=== PATIENT | female | born 1995 | race African-American/Black ===

== ENCOUNTER 2017-01-02 13:44 | Emergency (ER) | payer MEDICAID, OTHER ==
[~2017-01-02 13:44] MED LIST: MACR100C PO; PRENCAP10 PO
[2017-01-02 13:45] VITALS: BP 158/71; PULSE 62; RESP 20; TEMP 99; O2SAT 98
--- NOTE | 2017-01-02 14:07 | PD ---
Physical Exam Time Seen by Provider: 14:05 Narrative 21 y/o female with brown/pink vaginal discharge for one week. Vital signs reviewed. Seen at triage desk. Awaiting bed placement. Data Data Last Documented VS Vital Signs Date Time Temp Pulse Resp B/P Pulse Ox O2 Delivery O2 Flow Rate FiO2 01/02/17 13:45 99.0 62 20 158/71 98 Room Air MDM Medical Record Reviewed: Yes Supervised Visit with MECCA: Ronaldo Walls Jan 02, 2017 14:07
== END 2017-01-02 15:33 | disposition left against medical advice (07) ==
LOC: NED 13:44
DX: N89.8 Other specified noninflammatory disorders of vagina (principal)
CPT/HCPCS: 99281

== ENCOUNTER 2017-01-22 08:09 | Emergency (ER) | payer SELFPAY ==
[~2017-01-22] VITALS: Ht 160 cm; Wt 75.0 kg
[2017-01-22 08:10] VITALS: BP 136/66; PULSE 89; RESP 18; TEMP 98.7; O2SAT 100
[2017-01-22] MEDS ORDERED: SODIUM CHLOR 0.9% 1000 ML INJ 1,000 ML IV SCH (08:39)
[2017-01-22] MEDS ORDERED: ACETAMINOPHEN 325 MG TAB PO ONE (08:45)
[2017-01-22] MEDS ORDERED: SODIUM CHLORIDE 0.9% FLUSH 10 ML FLUSH IV FLUSH PRN (08:45)
--- NOTE | 2017-01-22 08:47 | PD ---
HPI Chief Complaint: Medical Clearance Time Seen by Provider: 08:27 Travel History International Travel<30 days: No Contact w/Intl Traveler<30days: No Traveled to known affect area: No History of Present Illness HPI 21-year-old female arrives with various complaints including blurred vision, headache, abdominal pain, back pain, loss of appetite and intermittent fevers for one month. Due to her very symptoms she skipped work and came to the ER for evaluation. She reports last menstruation was 2 months prior. She took a home test which was negative. Onset of symptoms have been gradual however intermittent otherwise. Severity moderate. No abnormal/idiosyncratic food or drink. No known sick contacts. No similar prior episode. PFSH Past Medical History Asthma: Yes Developmental Delay: No Diminished Hearing: No Immunizations Current: Yes ?: Unknown LMP: NOVEMBER 23, 2016 : 3 Para: 2 Miscarriage: 0 : 0 Social History Alcohol Use: No Tobacco Use: No Substance Use: No Allergies-Medications (Allergen,Severity, Reaction): Coded Allergies: No Known Allergies (Verified , 01/22/17) Reported Meds & Prescriptions Reported Meds & Active Scripts Active No Active Prescriptions or Reported Medications Review of Systems Except as stated in HPI: all other systems reviewed are Neg Physical Exam Narrative GENERAL: 21-year-old female well-nourished well-developed no acute distress speaking full sentences SKIN: Warm and dry. HEAD: Atraumatic. Normocephalic. EYES: Pupils equal and round. No scleral icterus. No injection or drainage. ENT: No nasal bleeding or discharge. Mucous membranes pink and moist. NECK: Trachea midline. No JVD. CARDIOVASCULAR: Regular rate and rhythm. RESPIRATORY: No accessory muscle use. Clear to auscultation. Breath sounds equal bilaterally. GASTROINTESTINAL: Abdomen soft, non-tender, nondistended. Hepatic and splenic margins not palpable. MUSCULOSKELETAL: Extremities without clubbing, cyanosis, or edema. No obvious deformities. NEUROLOGICAL: Awake and alert. No obvious cranial nerve deficits. Motor grossly within normal limits. Five out of 5 muscle strength in the arms and legs. Normal speech. PSYCHIATRIC: Appropriate mood and affect; insight and judgment normal. Data Data Last Documented VS Vital Signs Date Time Temp Pulse Resp B/P Pulse Ox O2 Delivery O2 Flow Rate FiO2 01/22/17 10:00 76 18 124/69 100 Room Air 01/22/17 08:10 98.7 Vital signs reviewed Orders Basic Metabolic Panel (Bmp) (01/22/17 08:39) Complete Blood Count With Diff (01/22/17 08:39) Urinalysis - C+S If Indicated (01/22/17 08:39) Iv Access Insert/Monitor (01/22/17 08:39) Ecg Monitoring (01/22/17 08:39) Oximetry (01/22/17 08:39) Sodium Chlor 0.9% 1000 Ml Inj (Ns 1000 M (01/22/17 08:39) Sodium Chloride 0.9% Flush (Ns Flush) (01/22/17 08:45) Ed Urine Pregnancytest Poc (01/22/17 08:39) Acetaminophen (Tylenol) (01/22/17 08:45) Labs Laboratory Tests Test 01/22/17 08:50 White Blood Count 10.8 TH/MM3 Red Blood Count 5.38 MIL/MM3 Hemoglobin 13.0 GM/DL Hematocrit 38.9 % Mean Corpuscular Volume 72.4 FL Mean Corpuscular Hemoglobin 24.2 PG Mean Corpuscular Hemoglobin 33.4 % Concent Red Cell Distribution Width 15.2 % Platelet Count 320 TH/MM3 Mean Platelet Volume 8.2 FL Neutrophils (%) (Auto) 59.1 % Lymphocytes (%) (Auto) 31.0 % Monocytes (%) (Auto) 7.5 % Eosinophils (%) (Auto) 1.6 % Basophils (%) (Auto) 0.8 % Neutrophils # (Auto) 6.4 TH/MM3 Lymphocytes # (Auto) 3.3 TH/MM3 Monocytes # (Auto) 0.8 TH/MM3 Eosinophils # (Auto) 0.2 TH/MM3 Basophils # (Auto) 0.1 TH/MM3 CBC Comment DIFF FINAL Differential Comment Urine Color YELLOW Urine Turbidity CLEAR Urine pH 6.5 Urine Specific [place] 1.027 Urine Protein TRACE mg/dL Urine Glucose (UA) NEG mg/dL Urine Ketones NEG mg/dL Urine Occult Blood NEG Urine Nitrite NEG Urine Bilirubin NEG Urine Urobilinogen LESS THAN 2.0 MG/DL Urine Leukocyte Esterase NEG Urine RBC 1 /hpf Urine WBC 2 /hpf Urine Squamous Epithelial 1 /hpf Cells Urine Mucus FEW /lpf Microscopic Urinalysis Comment CULT NOT INDICATED Sodium Level 138 MEQ/L Potassium Level 4.1 MEQ/L Chloride Level 107 MEQ/L Carbon Dioxide Level 27.0 MEQ/L Anion Gap 4 MEQ/L Blood Urea Nitrogen 13 MG/DL Creatinine 0.83 MG/DL Estimat Glomerular Filtration 103 ML/MIN Rate Random Glucose 96 MG/DL Calcium Level 8.6 MG/DL [facility] Medical Decision Making Medical Screen Exam Complete: Yes Emergency Medical Condition: Yes Medical Record Reviewed: Yes Differential Diagnosis UTI, anemia, electrolyte imbalance, nonspecific viral syndrome, intrauterine , rheumatologic disease Narrative Course CBC & BMP Diagram 01/22/17 08:50 Urinalysis shows no UTI POC is negative The patient is resting comfortably and feels better, is alert and in no distress. The patients results and examination findings were discussed. The repeat examination is unremarkable and benign. The history, exam, diagnostic testing, and current condition do not suggest any significant pathology to warrant further testing, continued ED treatment, admission, or surgical evaluation at this point. The vital signs have been stable. The patient does not have uncontrollable pain, intractable vomiting, or other significant symptoms. The patient's condition is stable and appropriate for discharge. The patient will pursue further outpatient evaluation with a primary care physician or other designated or consulting physician as indicated in the discharge instructions. The patient expressed understanding and was agreeable with this plan. Diagnosis Primary Impression: Headache Qualified Code: R51 - Nonintractable headache, unspecified chronicity pattern , unspecified headache type Additional Impressions: Blurred vision Intermittent fever Pain Referrals: [facility] 2 days Additional Instructions: Please be sure to follow up with your primary care provider. Please take the day off and drink plenty of fluids. Med/Other Pt SpecificInfo: No Change to Meds Scripts No Active Prescriptions or Reported Meds Disposition: 01 DISCHARGE HOME Condition: Stable Joseph Wilson MD Jan 22, 2017 08:47 Joseph Wilson MD Jan 22, 2017 08:47
[2017-01-22 09:00] VITALS: O2SAT 100
[2017-01-22 09:01] VITALS: BP 119/84; PULSE 77; RESP 15; O2SAT 100
[2017-01-22 09:21] LABS: AUTOMATED NEUTROPHIL # 6.4 TH/MM3 (1.8-7.7); BASOPHIL # 0.1 TH/MM3 (0-0.2); BASOPHIL % 0.8 % (0.0-2.0); EOSINOPHIL # 0.2 TH/MM3 (0-0.4); EOSINOPHIL % 1.6 % (0.0-4.0); HEMATOCRIT 38.9 % (35.0-46.0); HEMO FLAGS DIFF FINAL; LYMPHOCYTE # 3.3 TH/MM3 (1.0-4.8); MEAN CELL VOLUME 72.4 FL (80.0-100.0); MEAN CORPUSCULAR HEMOGLOBIN 24.2 PG (27.0-34.0); MEAN CORPUSCULAR HGB CONC 33.4 % (32.0-36.0); MONO % 7.5 % (0.0-8.0); NEUT % 59.1 % (16.0-70.0); PLATELET COUNT 320 TH/MM3 (150-450); RED BLOOD COUNT 5.38 MIL/MM3 (4.00-5.30); RED CELL DISTRIBUTION WIDTH 15.2 % (11.6-17.2); WHITE BLOOD COUNT 10.8 TH/MM3 (4.0-11.0)
[2017-01-22 09:24] LABS: BLOOD, URINE NEG (NEG); COMMENT (UR) CULT NOT INDICATED; CULTURE IF INDICATED CULT NOT INDICATED; GLUCOSE,URINE NEG (NEG); KETONE, URINE NEG (NEG); MUCUS URINE FEW /lpf (OCC); NITRITE,URINE NEG (NEG); PH, URINE 6.5 (5.0-8.5); SQUAMOUS EPITHELIAL CELL URINE 1 /hpf (0-5); URINE COLOR YELLOW (YELLW/STRAW)
[2017-01-22 09:38] LABS: POTASSIUM 4.1 MEQ/L (3.5-5.1)
[2017-01-22 10:00] VITALS: BP 124/69; PULSE 76; RESP 18; O2SAT 100
== END 2017-01-22 11:11 | disposition home or self-care (01) ==
LOC: NEPC 08:09
DX: R51 Headache (principal); H53.8 Other visual disturbances; R50.9 Fever, unspecified
CPT/HCPCS: 80048; 81001; 84703; 85025; 96360; 99284; J7030

== ENCOUNTER 2017-04-29 14:30 | Emergency (ER) | payer SELFPAY ==
[2017-04-29 14:33] VITALS: BP 146/74; PULSE 122; RESP 20; TEMP 103; O2SAT 99
[2017-04-29 16:16] LABS: AUTOMATED NEUTROPHIL # 13.4 TH/MM3 (1.8-7.7); BASOPHIL # 0.1 TH/MM3 (0-0.2); BASOPHIL % 0.5 % (0.0-2.0); EOSINOPHIL % 0.2 % (0.0-4.0); HEMATOCRIT 38.9 % (35.0-46.0); HEMO FLAGS DIFF FINAL; LYMPH % 11.6 % (9.0-44.0); MEAN CELL VOLUME 72.1 FL (80.0-100.0); MEAN CORPUSCULAR HEMOGLOBIN 24.1 PG (27.0-34.0); MEAN CORPUSCULAR HGB CONC 33.4 % (32.0-36.0); MONO % 9.8 % (0.0-8.0); NEUT % 77.9 % (16.0-70.0); PLATELET COUNT 330 TH/MM3 (150-450); RED BLOOD COUNT 5.39 MIL/MM3 (4.00-5.30); RED CELL DISTRIBUTION WIDTH 15.7 % (11.6-17.2); WHITE BLOOD COUNT 17.1 TH/MM3 (4.0-11.0)
[2017-04-29 16:27] LABS: BICARBONATE 23.1 MEQ/L (21.0-32.0)
[2017-04-29] MEDS ORDERED: SODIUM CHLOR 0.9% 1000 ML INJ 1,000 ML IV ONE (16:45)
[2017-04-29] MEDS ORDERED: ACETAMINOPHEN 325 MG TAB PO ONE (16:45)
[2017-04-29] MEDS ORDERED: KETOROLAC TROMETHAMINE 30 MG/ML (IVP) VIAL IV PUSH ONE (16:45)
--- NOTE | 2017-04-29 16:51 | PD ---
HPI Chief Complaint: Cold / Flu Symptoms Time Seen by Provider: 16:25 Travel History International Travel<30 days: No Contact w/Intl Traveler<30days: No Traveled to known affect area: No History of Present Illness HPI The patient is a 21-year-old female who presents to the emergency department for sore throat and fever. The patient states she had a sore throat 3 weeks ago, it lasted for approximately 2 weeks with some cervical lymphadenopathy and diffuse body aches. Her symptoms resolved for one week and then returned one week ago. She complains of a sore throat, anterior neck swelling, and diffuse body aches. She now notes nausea, vomiting, and diarrhea that started earlier today. She denies any dysuria. She does have a fever as high as 104 in the emergency department with some chills and sweats. The patient denies any history of mononucleosis or leukemia. Symptoms are moderate , there are no current alleviating or exacerbating factors. The patient is currently on control, denies . PFSH Past Medical History Asthma: Yes Developmental Delay: No Diminished Hearing: No Immunizations Current: Yes ?: Not : 3 Para: 3 Miscarriage: 0 : 0 Social History Alcohol Use: Yes (OCCASSIONAL) Tobacco Use: Yes Substance Use: No Allergies-Medications (Allergen,Severity, Reaction): Coded Allergies: No Known Allergies (Verified Adverse Reaction, Unknown, 04/29/17) Reported Meds & Prescriptions Reported Meds & Active Scripts Active Amoxicillin 500 Mg Tab 500 Mg PO TID Prednisone 20 Mg Tab 20 Mg PO BID Review of Systems Except as stated in HPI: all other systems reviewed are Neg General / Constitutional: Positive: Fever, Chills HENT: Positive: Headaches, Sore Throat, Neck Pain (anterior neck pain and swelling), No: Congestion Cardiovascular: No: Chest Pain or Discomfort Respiratory: No: Shortness of Breath Gastrointestinal: Positive: Nausea, Vomiting, Diarrhea, No: Abdominal Pain Musculoskeletal: Positive: Myalgias Skin: No Rash Physical Exam Narrative GENERAL: Awake, alert, pleasant 21-year-old female who appears her stated age and is in no acute respiratory distress. SKIN: Focused skin assessment warm/dry. HEAD: Atraumatic. Normocephalic. EYES: Pupils equal and round. No scleral icterus. No injection or drainage. ENT: Oropharynx reveals an erythematous oropharynx without any visible exudate. NECK: Trachea midline. No JVD. Anterior cervical lymphadenopathy bilaterally which is tender. CARDIOVASCULAR: Regular, tachycardic with a heart rate of 115. RESPIRATORY: No accessory muscle use. Clear to auscultation. Breath sounds equal bilaterally. GASTROINTESTINAL: Abdomen soft, non-tender, nondistended. No rebound tenderness , guarding, or rigidity. MUSCULOSKELETAL: No obvious deformities. No clubbing. No cyanosis. No edema. NEUROLOGICAL: Awake and alert. No obvious cranial nerve deficits. Motor grossly within normal limits. Normal speech. PSYCHIATRIC: Appropriate mood and affect; insight and judgment normal. Data Data Last Documented VS Vital Signs Date Time Temp Pulse Resp B/P (MAP) Pulse Ox O2 Delivery O2 Flow Rate FiO2 04/29/17 20:33 04/29/17 20:25 99 18 100 Room Air 04/29/17 17:00 100.4 Orders Orders Urinalysis - C+S If Indicated (04/29/17 14:53) Ed Urine Pregnancytest Poc (04/29/17 14:53) Influenzae A/B Antigen (04/29/17 14:53) Group A Rapid Strep Screen (04/29/17 14:53) Complete Blood Count With Diff (04/29/17 14:53) Basic Metabolic Panel (Bmp) (04/29/17 14:53) Strep Culture (Group A) (04/29/17 15:19) Monoscreen (04/29/17 16:37) Ketorolac Inj (Toradol Inj) (04/29/17 16:45) Acetaminophen (Tylenol) (04/29/17 16:45) Sodium Chlor 0.9% 1000 Ml Inj (Ns 1000 M (04/29/17 16:45) Ondansetron Inj (Zofran Inj) (04/29/17 17:00) Dexamethasone Inj (Decadron Inj) (04/29/17 17:15) Ct Soft Tiss Neck W Iv Cont (04/29/17 17:03) Iohexol 350 Inj (Omnipaque 350 Inj) (04/29/17 18:44) Ed Discharge Order (04/29/17 20:22) Labs Laboratory Tests Test 04/29/17 15:19 04/29/17 16:10 04/29/17 16:45 White Blood Count 17.1 TH/MM3 Red Blood Count 5.39 MIL/MM3 Hemoglobin 13.0 GM/DL Hematocrit 38.9 % Mean Corpuscular Volume 72.1 FL Mean Corpuscular Hemoglobin 24.1 PG Mean Corpuscular Hemoglobin Concent 33.4 % Red Cell Distribution Width 15.7 % Platelet Count 330 TH/MM3 Mean Platelet Volume 8.7 FL Neutrophils (%) (Auto) 77.9 % Lymphocytes (%) (Auto) 11.6 % Monocytes (%) (Auto) 9.8 % Eosinophils (%) (Auto) 0.2 % Basophils (%) (Auto) 0.5 % Neutrophils # (Auto) 13.4 TH/MM3 Lymphocytes # (Auto) 2.0 TH/MM3 Monocytes # (Auto) 1.7 TH/MM3 Eosinophils # (Auto) 0.0 TH/MM3 Basophils # (Auto) 0.1 TH/MM3 CBC Comment DIFF FINAL Differential Comment Blood Urea Nitrogen 7 MG/DL Creatinine 0.88 MG/DL Random Glucose 99 MG/DL Calcium Level 8.7 MG/DL Sodium Level 136 MEQ/L Potassium Level 4.0 MEQ/L Chloride Level 107 MEQ/L Carbon Dioxide Level 23.1 MEQ/L Anion Gap 6 MEQ/L Estimat Glomerular Filtration Rate 96 ML/MIN Urine Color YELLOW Urine Turbidity HAZY Urine pH 7.0 Urine Specific [place] 1.018 Urine Protein TRACE mg/dL Urine Glucose (UA) NEG mg/dL Urine Ketones NEG mg/dL Urine Occult Blood NEG Urine Nitrite NEG Urine Bilirubin NEG Urine Urobilinogen 2.0 MG/DL Urine Leukocyte Esterase NEG Urine RBC 1 /hpf Urine WBC 3 /hpf Urine Squamous Epithelial Cells 10 /hpf Microscopic Urinalysis Comment CULT NOT INDICATED Monoscreen NEG MDM Medical Decision Making Medical Screen Exam Complete: Yes Emergency Medical Condition: Yes Medical Record Reviewed: Yes Interpretation(s) Laboratory Tests Test 04/29/17 15:19 White Blood Count 17.1 TH/MM3 Red Blood Count 5.39 MIL/MM3 Hemoglobin 13.0 GM/DL Hematocrit 38.9 % Mean Corpuscular Volume 72.1 FL Mean Corpuscular Hemoglobin 24.1 PG Mean Corpuscular Hemoglobin Concent 33.4 % Red Cell Distribution Width 15.7 % Platelet Count 330 TH/MM3 Mean Platelet Volume 8.7 FL Neutrophils (%) (Auto) 77.9 % Lymphocytes (%) (Auto) 11.6 % Monocytes (%) (Auto) 9.8 % Eosinophils (%) (Auto) 0.2 % Basophils (%) (Auto) 0.5 % Neutrophils # (Auto) 13.4 TH/MM3 Lymphocytes # (Auto) 2.0 TH/MM3 Monocytes # (Auto) 1.7 TH/MM3 Eosinophils # (Auto) 0.0 TH/MM3 Basophils # (Auto) 0.1 TH/MM3 CBC Comment DIFF FINAL Differential Comment Blood Urea Nitrogen 7 MG/DL Creatinine 0.88 MG/DL Random Glucose 99 MG/DL Calcium Level 8.7 MG/DL Sodium Level 136 MEQ/L Potassium Level 4.0 MEQ/L Chloride Level 107 MEQ/L Carbon Dioxide Level 23.1 MEQ/L Anion Gap 6 MEQ/L Estimat Glomerular Filtration Rate 96 ML/MIN Differential Diagnosis Differential diagnosis includes mononucleosis, strep pharyngitis, URI, viral syndrome, influenza, fever of unknown origin. Narrative Course IV was established, labs are drawn and sent, and the patient was placed on cardiac telemetry monitoring and continuous pulse oximetry monitoring. Strep screen was sent to lab. Mononucleosis screen was sent to lab. Influenza screen was negative. The patient was administered Toradol, Tylenol, Zofran, and IV fluids. White count was elevated at 17.1, BMP was unremarkable. The patient was signed out to the oncoming physician at 5 PM with laboratory evaluation of mononucleosis screen pending. Diagnosis Primary Impression: Pharyngitis Qualified Codes: J02.9 - Acute pharyngitis, unspecified Additional Impression: Febrile illness Scripts Amoxicillin (Amoxicillin) 500 Mg Tab 500 MG PO TID for Infection, #30 TAB 0 Refills Prov: Phan Paulson MD 04/29/17 Prednisone (Prednisone) 20 Mg Tab 20 MG PO BID, #10 TAB 0 Refills Prov: Phan Paulson MD 04/29/17 Condition: Stable Gagandeep Dinh MD Apr 29, 2017 16:51
[2017-04-29 17:00] VITALS: BP 134/82; PULSE 109; RESP 20; TEMP 100.4; O2SAT 98
[2017-04-29] MEDS ORDERED: ONDANSETRON HCL 4 MG/2 ML VIAL IV PUSH ONE (17:00)
[2017-04-29] MEDS ORDERED: DEXAMETHASONE SOD PHOS 4 MG/ML VIAL IV PUSH ONE (17:15)
[2017-04-29 17:29] LABS: BLOOD, URINE NEG (NEG); COMMENT (UR) CULT NOT INDICATED; CULTURE IF INDICATED CULT NOT INDICATED; GLUCOSE,URINE NEG (NEG); KETONE, URINE NEG (NEG); NITRITE,URINE NEG (NEG); SQUAMOUS EPITHELIAL CELL URINE 10 /hpf (0-5); URINE COLOR YELLOW (YELLW/STRAW)
[2017-04-29] MEDS ORDERED: IOHEXOL 350 MG/ML 10 ML VIAL (for RAD DIAG) IVCONTRAST ONE (18:44)
--- NOTE | 2017-04-29 20:12 | RADRPT ---
EXAM DATE/TIME: 04/29/2017 18:38 [place] COMPARISON: No previous studies available for comparison. INDICATIONS : Sore throat x1 week. IV CONTRAST: 61 cc Omnipaque 350 (iohexol) IV RADIATION DOSE: 17.34 CTDIvol (mGy) MEDICAL HISTORY : None SURGICAL HISTORY : None. ENCOUNTER: Initial ACUITY: 1 week PAIN SCALE: 6/10 LOCATION: Bilateral neck TECHNIQUE: Volumetric scanning of the neck was performed. Using automated exposure control and adjustment of th e mA and/or kV according to patient size, radiation dose was kept as low as reasonably achievable to obtain optimal diagnostic quality images. DICOM format image data is available electronically for r eview and comparison. FINDINGS: NASOPHARYNX: There is increased soft tissue density at the nasopharynx likely from enlarged adenoids. OROPHARYNX: The tonsils appear prominent. No focal fluid collection is seen. The hypopharynx is normal. LARYNX: The supraglottic, glottic, and infraglottic structures are intact. PARAPHARYNGEAL: There are prominent lymph nodes in the parapharyngeal spaces. SALIVARY GLANDS: The parotid and submandibular glands are intact. LYMPH NODES: There are enlarged lymph nodes in the parapharyngeal and posterior triangle regions bilaterally THYROID: The thyroid appears prominent without focal masses. BONES: Unremarkable. OTHER: There is near total opacification of the left sphenoid sinus. There is mild peripheral mucosal diseas e of the maxillary sinuses bilaterally. CONCLUSION: 1. Suspected enlarged adenoids and tonsils. There is also prominent lymph nodes throughout the neck. No abscess is seen. 2. Left sphenoid and bilateral maxillary sinus disease. Willi Mensah MD on April 29, 2017 at 20:06 Board Certified Radiologist. This report was verified electronically.
--- NOTE | 2017-04-29 20:16 | PD ---
Physical Exam Narrative Patient was seen by ED physician and signed out to me. Data Data Last Documented VS Vital Signs Date Time Temp Pulse Resp B/P (MAP) Pulse Ox O2 Delivery O2 Flow Rate FiO2 04/29/17 17:59 18 04/29/17 17:00 100.4 109 134/82 (99) 98 Room Air Orders Orders Urinalysis - C+S If Indicated (04/29/17 14:53) Ed Urine Pregnancytest Poc (04/29/17 14:53) Influenzae A/B Antigen (04/29/17 14:53) Group A Rapid Strep Screen (04/29/17 14:53) Complete Blood Count With Diff (04/29/17 14:53) Basic Metabolic Panel (Bmp) (04/29/17 14:53) Strep Culture (Group A) (04/29/17 15:19) Monoscreen (04/29/17 16:37) Ketorolac Inj (Toradol Inj) (04/29/17 16:45) Acetaminophen (Tylenol) (04/29/17 16:45) Sodium Chlor 0.9% 1000 Ml Inj (Ns 1000 M (04/29/17 16:45) Ondansetron Inj (Zofran Inj) (04/29/17 17:00) Dexamethasone Inj (Decadron Inj) (04/29/17 17:15) Ct Soft Tiss Neck W Iv Cont (04/29/17 17:03) Iohexol 350 Inj (Omnipaque 350 Inj) (04/29/17 18:44) Ed Discharge Order (04/29/17 20:22) Labs Laboratory Tests Test 04/29/17 15:19 04/29/17 16:10 04/29/17 16:45 White Blood Count 17.1 TH/MM3 Red Blood Count 5.39 MIL/MM3 Hemoglobin 13.0 GM/DL Hematocrit 38.9 % Mean Corpuscular Volume 72.1 FL Mean Corpuscular Hemoglobin 24.1 PG Mean Corpuscular Hemoglobin Concent 33.4 % Red Cell Distribution Width 15.7 % Platelet Count 330 TH/MM3 Mean Platelet Volume 8.7 FL Neutrophils (%) (Auto) 77.9 % Lymphocytes (%) (Auto) 11.6 % Monocytes (%) (Auto) 9.8 % Eosinophils (%) (Auto) 0.2 % Basophils (%) (Auto) 0.5 % Neutrophils # (Auto) 13.4 TH/MM3 Lymphocytes # (Auto) 2.0 TH/MM3 Monocytes # (Auto) 1.7 TH/MM3 Eosinophils # (Auto) 0.0 TH/MM3 Basophils # (Auto) 0.1 TH/MM3 CBC Comment DIFF FINAL Differential Comment Blood Urea Nitrogen 7 MG/DL Creatinine 0.88 MG/DL Random Glucose 99 MG/DL Calcium Level 8.7 MG/DL Sodium Level 136 MEQ/L Potassium Level 4.0 MEQ/L Chloride Level 107 MEQ/L Carbon Dioxide Level 23.1 MEQ/L Anion Gap 6 MEQ/L Estimat Glomerular Filtration Rate 96 ML/MIN Urine Color YELLOW Urine Turbidity HAZY Urine pH 7.0 Urine Specific [place] 1.018 Urine Protein TRACE mg/dL Urine Glucose (UA) NEG mg/dL Urine Ketones NEG mg/dL Urine Occult Blood NEG Urine Nitrite NEG Urine Bilirubin NEG Urine Urobilinogen 2.0 MG/DL Urine Leukocyte Esterase NEG Urine RBC 1 /hpf Urine WBC 3 /hpf Urine Squamous Epithelial Cells 10 /hpf Microscopic Urinalysis Comment CULT NOT INDICATED Monoscreen NEG MDM Supervised Visit with MECCA: Yes Interpretation(s) [address] scan soft tissue neck shows enlarged adenoids and tonsils. No abscess. Left sphenoid bilateral maxillary sinus disease. Diagnosis Primary Impression: Pharyngitis Qualified Codes: J02.9 - Acute pharyngitis, unspecified Additional Impressions: Febrile illness Sinusitis Qualified Codes: J01.00 - Acute maxillary sinusitis, unspecified Patient Instructions: General Instructions Additional Instruction: Patient requesting free medication at [facility]. Prescription for Amoxicillin and prednisone given. Tylenol ibuprofen for pain. Follow-up with personal physician. Return if worse. Med/Other Pt SpecificInfo: Prescription(s) given Scripts Amoxicillin (Amoxicillin) 500 Mg Tab 500 MG PO TID for Infection, #30 TAB 0 Refills Prov: Phan Paulson MD 04/29/17 Prednisone (Prednisone) 20 Mg Tab 20 MG PO BID, #10 TAB 0 Refills Prov: Phan Paulson MD 04/29/17 Disposition: 01 DISCHARGE HOME Condition: Stable Phan Paulson MD Apr 29, 2017 20:16
[2017-04-29 20:25] VITALS: BP 129/78; PULSE 99; RESP 18; O2SAT 100
[2017-04-29] MEDS ORDERED: PRED20 PO (20:28)
[2017-04-29] MEDS ORDERED: AMOX500T PO (20:28)
== END 2017-04-29 20:34 | disposition home or self-care (01) ==
LOC: NEPD 14:30
DX: J02.9 Acute pharyngitis, unspecified (principal); R50.9 Fever, unspecified; J32.3 Chronic sphenoidal sinusitis; J32.0 Chronic maxillary sinusitis; J35.3 Hypertrophy of tonsils with hypertrophy of adenoids; R11.2 Nausea with vomiting, unspecified; R19.7 Diarrhea, unspecified; J45.909 Unspecified asthma, uncomplicated; Z72.0 Tobacco use
CPT/HCPCS: 70491; 80048; 81001; 84703; 85025; 86308; 87081; 87804; 87880; 96361; 96374; 96375; 99285; J1100; J1885; J2405; J7030; Q9967

== ENCOUNTER 2017-11-17 00:33 | Emergency (ER) | payer OTHER ==
[~2017-11-17] VITALS: Ht 160 cm; Wt 81.5 kg
[~2017-11-17 00:33] MED LIST changes: +AMOX500T PO; -MACR100C PO; +PRED20 PO; -PRENCAP10 PO
[2017-11-17 00:36] VITALS: BP 132/58; PULSE 91; RESP 14; TEMP 97.1; O2SAT 100
[2017-11-17] MEDS ORDERED: SODIUM CHLOR 0.9% 1000 ML INJ 1,000 ML IV ONE (01:00)
[2017-11-17] MEDS ORDERED: ONDANSETRON ODT 4 MG TAB PO ONE (01:00)
[2017-11-17 01:11] VITALS: O2SAT 100
[2017-11-17 01:28] LABS: AUTOMATED NEUTROPHIL # 9.6 TH/MM3 (1.8-7.7); BASOPHIL # 0.1 TH/MM3 (0-0.2); BASOPHIL % 0.4 % (0.0-2.0); EOSINOPHIL # 0.1 TH/MM3 (0-0.4); EOSINOPHIL % 0.5 % (0.0-4.0); HEMATOCRIT 36.5 % (35.0-46.0); HEMOGLOBIN 12.1 GM/DL (11.6-15.3); LYMPH % 24.8 % (9.0-44.0); LYMPHOCYTE # 3.7 TH/MM3 (1.0-4.8); MEAN CELL VOLUME 69.8 FL (80.0-100.0); MEAN CORPUSCULAR HEMOGLOBIN 23.1 PG (27.0-34.0); MEAN CORPUSCULAR HGB CONC 33.1 % (32.0-36.0); MEAN PLATELET VOLUME 8.5 FL (7.0-11.0); MONO % 9.6 % (0.0-8.0); MONOCYTE # 1.4 TH/MM3 (0-0.9); NEUT % 64.7 % (16.0-70.0); PLATELET COUNT 298 TH/MM3 (150-450); RED BLOOD COUNT 5.23 MIL/MM3 (4.00-5.30); RED CELL DISTRIBUTION WIDTH 17.2 % (11.6-17.2); WHITE BLOOD COUNT 14.9 TH/MM3 (4.0-11.0)
--- NOTE | 2017-11-17 01:29 | PD ---
HPI Chief Complaint: Cold / Flu Symptoms Time Seen by Provider: 00:59 Travel History International Travel<30 days: No Contact w/Intl Traveler<30days: No Traveled to known affect area: No History of Present Illness HPI The patient is a 23 year old female who presents to the [facility] emergency department with a history of congestion, cough, rhinorrhea, sore throat that began in the last 24 hours. The patient reports that in the afternoon she began to have generalized body aches. She reports that she did take Tylenol. She last took Tylenol at 7:30 PM. She reports that she recently found out that she is . She is a . She reports that her cough has not been productive. She reports that her nasal discharge is clear in color. The patient reports having a subjective fever earlier today. Patient reports having nausea vomiting earlier today. She denies having any abdominal pain, vaginal discharge, or vaginal bleeding. On review of systems otherwise, she denies having any neck pain, chest pain, shortness of breath,urinary symptoms, or neurologic symptoms. Last menstrual cycle: October 03, 2017 [facility] Past Medical History Narrative Medical The patient's past medical history is reportedly none. The patient's past OB history is significant for being a with 3 prior vaginal deliveries, last delivery complicated by preeclampsia. Asthma: Yes Developmental Delay: No Diminished Hearing: No Immunizations Current: Yes Tetanus Vaccination: < 5 Years Influenza Vaccination: No ?: LMP: 5 weeks : 4 Para: 3 Miscarriage: 0 : 0 Past Surgical History Surgical History: No Previous Surgery Social History Alcohol Use: Yes (OCCASSIONAL) Tobacco Use: No Substance Use: No Allergies-Medications (Allergen,Severity, Reaction): Coded Allergies: No Known Allergies (Verified Adverse Reaction, Unknown, 04/29/17) Reported Meds & Prescriptions Reported Meds & Active Scripts Active Amoxicillin 500 Mg Tab 500 Mg PO TID Prednisone 20 Mg Tab 20 Mg PO BID Review of Systems Except as stated in HPI: all other systems reviewed are Neg General / Constitutional: Positive: Fever Eyes: No: Visual changes HENT: Positive: Sore Throat, Rhinorrhea, Congestion, No: Headaches Cardiovascular: No: Chest Pain or Discomfort Respiratory: Positive: Cough, No: Shortness of Breath Gastrointestinal: Positive: Nausea, Vomiting, No: Abdominal Pain Genitourinary: No: Dysuria Musculoskeletal: Positive: Myalgias, No: Pain Skin: No Rash Neurologic: No: Weakness, Focal Abnormalities, Change in Mentation, Slurred Speech, Sensory Disturbance Psychiatric: No: Depression Endocrine: No: Polydipsia Hematologic/Lymphatic: No: Easy Bruising Physical Exam Narrative General: The patient is a well-developed well-nourished female in no acute distress. Head and Neck exam: Head is normocephalic atraumatic. Eyes: EOMI, pupils are equal round and reactive to light. Nose: Midline septum with midline septum, erythematous edematous nasal mucosa with a clear nasal discharge Mouth: Dentition unremarkable. Moist mucus membranes. Posterior oropharynx is mildly erythematous. No tonsillar hypertrophy. Uvula midline. Airway patent. Neck: No palpable lymphadenopathy. No nuchal rigidity. No thyromegaly. Cardiovascular: Regular rate and rhythm without murmurs, gallops, or rubs. No pulse deficit to the extremities on simultaneous auscultation and palpation of her radial artery. Lungs: Clear to auscultation bilaterally. No wheezes, rhonchi, or rales. Abdomen: Soft, without tenderness to palpation in all 4 quadrants of the abdomen. No guarding, rebound, or rigidity. Normal bowel sounds are audible. No tenderness on palpation of McBurney's point. Negative Anaya sign. Extremities: No clubbing, cyanosis, or edema. 2+ pulses in all 4 extremities. No calf tenderness on palpation peer Back: No spinous process tenderness to palpation. No costovertebral angle tenderness to palpation. Neurologic Exam: Grossly nonfocal. Skin Exam: No rash noted. Intact skin that is warm and dry. Data Data Last Documented VS Vital Signs Date Time Temp Pulse Resp B/P (MAP) Pulse Ox O2 Delivery O2 Flow Rate FiO2 11/17/17 01:11 100 Room Air 11/17/17 00:36 97.1 91 14 132/58 (82) Orders Orders Complete Blood Count With Diff (11/17/17:00) Basic Metabolic Panel (Bmp) (11/17/17:00) Urinalysis - C+S If Indicated (11/17/17:00) Group A Rapid Strep Screen (11/17/17:00) Iv Access Insert/Monitor (11/17/17:00) Ecg Monitoring (6/4/18 01:00) Oximetry (11/17/17 01:00) Ed Urine Pregnancytest Poc (11/17/17 01:00) Sodium Chlor 0.9% 1000 Ml Inj (Ns 1000 M (11/17/17 01:00) Ondansetron Odt (Zofran Odt) (11/17/17 01:00) Beta Hcg (Quant/Titer) (11/17/17 01:11) Strep Culture (Group A) (11/17/17 01:11) Labs Laboratory Tests Test 11/17/17 01:11 11/17/17 01:12 White Blood Count 14.9 TH/MM3 Red Blood Count 5.23 MIL/MM3 Hemoglobin 12.1 GM/DL Hematocrit 36.5 % Mean Corpuscular Volume 69.8 FL Mean Corpuscular Hemoglobin 23.1 PG Mean Corpuscular Hemoglobin Concent 33.1 % Red Cell Distribution Width 17.2 % Platelet Count 298 TH/MM3 Mean Platelet Volume 8.5 FL Neutrophils (%) (Auto) 64.7 % Lymphocytes (%) (Auto) 24.8 % Monocytes (%) (Auto) 9.6 % Eosinophils (%) (Auto) 0.5 % Basophils (%) (Auto) 0.4 % Neutrophils # (Auto) 9.6 TH/MM3 Lymphocytes # (Auto) 3.7 TH/MM3 Monocytes # (Auto) 1.4 TH/MM3 Eosinophils # (Auto) 0.1 TH/MM3 Basophils # (Auto) 0.1 TH/MM3 CBC Comment DIFF FINAL Differential Comment Blood Urea Nitrogen 6 MG/DL Creatinine 0.73 MG/DL Random Glucose 108 MG/DL Calcium Level 8.6 MG/DL Sodium Level 138 MEQ/L Potassium Level 3.7 MEQ/L Chloride Level 104 MEQ/L Carbon Dioxide Level 24.6 MEQ/L Anion Gap 9 MEQ/L Estimat Glomerular Filtration Rate 119 ML/MIN Human Chorionic Gonadotropin, Quant 59312 MIU/ML Urine Color YELLOW Urine Turbidity HAZY Urine pH 7.0 Urine Specific [place] 1.012 Urine Protein NEG mg/dL Urine Glucose (UA) NEG mg/dL Urine Ketones NEG mg/dL Urine Occult Blood NEG Urine Nitrite NEG Urine Bilirubin NEG Urine Urobilinogen LESS THAN 2.0 MG/DL Urine Leukocyte Esterase SMALL Urine RBC LESS THAN 1 /hpf Urine WBC 4 /hpf Urine Squamous Epithelial Cells 6 /hpf Urine Bacteria RARE /hpf Urine Mucus FEW /lpf Microscopic Urinalysis Comment CULT NOT INDICATED MDM Medical Decision Making Medical Screen Exam Complete: Yes Emergency Medical Condition: Yes Medical Record Reviewed: Yes Differential Diagnosis Viral upper respiratory infection, versus bacterial sinus infection, versus strep pharyngitis Narrative Course During the course of the patient's emergency department visit, the patient's history, examination, and differential diagnosis were reviewed with the patient. The patient was placed on a color television console monitor with oximetry and frequent blood pressure monitoring. The patient had IV access obtained and blood work sent for analysis. The patient was initially provided normal saline 1 L IV fluid bolus, Zofran 4 mg ODT. The patient was also provided Gatorade for p.o. hydration. The patient's laboratory studies were reviewed and remarkable for a white count of 14.9, hemoglobin 12.1, platelets 298 with 9.6 monocytes, basic metabolic profile is remarkable for glucose of 108, BUN 6, beta-hCG is 30,280, urinalysis shows small leukocyte esterase rare bacteria, culture not indicated, however given her bacteriuria in the patient will be treated with Macrobid, rapid strep test is negative. The patient will be discharged home with a prescription for Macrobid and Zofran oral dissolving tablet for nausea and . The patient is instructed to continue to push fluids and get plenty of rest. The patient is instructed to take Tylenol as written on the package as needed for discomfort or fever. The patient is instructed to follow-up with the registered health nurse as soon as possible regarding her . The patient is resting comfortably and feels better, is alert and in no distress. The patient's results and examination findings were discussed with the patient. The repeat examination is unremarkable and benign. The history, exam, diagnostic testing, and current condition do not suggest any significant pathology to warrant further testing, continued ED treatment, admission, or surgical evaluation at this point. The vital signs have been stable. The patient does not have uncontrollable pain, intractable vomiting, or other significant symptoms. The patient's condition is stable and appropriate for discharge. The patient will pursue further outpatient evaluation with a primary care physician or other designated or consulting physician as indicated in the discharge instructions. The patient is instructed to report back to the emergency department immediately for reexamination in the mean time if he/ she develops any new or worsening signs or symptoms. The patient expressed understanding and was agreeable with this plan. Diagnosis Primary Impression: Upper respiratory infection Qualified Codes: J06.9 - Acute upper respiratory infection, unspecified Additional Impression: Bacteriuria during Referrals: [employer] 1 week Primary Care Physician 3 days Patient Instructions: General Instructions, Upper Respiratory Infection in Children (ED), Urinary Tract Infection in (ED) Med/Other Pt SpecificInfo: Prescription(s) given (macrobid) Scripts Ondansetron Odt (Zofran Odt) 4 Mg Tab 4 MG SL Q6HR Y for Nausea/Vomiting, #12 TAB 0 Refills Prov: Melvina Rubin MD 11/17/17 Nitrofurantoin Monohydrate Macrocrystals (Macrobid) 100 Mg Cap 100 MG PO BID for Infection for 7 Days, #14 CAP 0 Refills Prov: Melvina Rubin MD 11/17/17 Disposition: 01 DISCHARGE HOME Condition: Stable Melvina Rubin MD Nov 17, 2017 01:29
[2017-11-17 01:32] LABS: BACTERIA, URINE RARE /hpf; BILIRUBIN, URINE NEG (NEG); BLOOD, URINE NEG (NEG); GLUCOSE,URINE NEG (NEG); KETONE, URINE NEG (NEG); MUCUS URINE FEW /lpf (OCC); NITRITE,URINE NEG (NEG); SQUAMOUS EPITHELIAL CELL URINE 6 /hpf (0-5); URINE COLOR YELLOW (YELLW/STRAW); URINE LEUKOCYTE ESTERASE SMALL (NEG)
[2017-11-17 01:40] LABS: BICARBONATE 24.6 MEQ/L (21.0-32.0); CALCIUM 8.6 MG/DL (8.5-10.1); CREATININE 0.73 MG/DL (0.50-1.00)
[2017-11-17] MEDS ORDERED: ZOFR4TAB3 SL (03:35)
[2017-11-17] MEDS ORDERED: MACR100C2 PO (03:35)
== END 2017-11-17 03:51 | disposition home or self-care (01) ==
LOC: NEPC 00:33
DX: O99.511 Diseases of the respiratory system complicating pregnancy, first trimester (principal); J06.9 Acute upper respiratory infection, unspecified; R82.71 Bacteriuria; Z3A.01 Less than 8 weeks gestation of pregnancy
CPT/HCPCS: 80048; 81001; 84702; 84703; 85025; 87081; 87880; 99283; J7030

== ENCOUNTER 2017-12-03 13:40 | Emergency (ER) | payer OTHER ==
[~2017-12-03] VITALS: Ht 160 cm; Wt 85.0 kg
[~2017-12-03 13:40] MED LIST changes: +MACR100C2 PO; +ZOFR4TAB3 SL
[2017-12-03 13:44] VITALS: BP 139/62; PULSE 84; RESP 16; TEMP 97.5; O2SAT 100
[2017-12-03 14:10] LABS: AUTOMATED NEUTROPHIL # 8.7 TH/MM3 (1.8-7.7); BASOPHIL # 0.1 TH/MM3 (0-0.2); BASOPHIL % 0.5 % (0.0-2.0); EOSINOPHIL # 0.1 TH/MM3 (0-0.4); EOSINOPHIL % 0.8 % (0.0-4.0); HEMATOCRIT 36.2 % (35.0-46.0); LYMPH % 26.7 % (9.0-44.0); LYMPHOCYTE # 3.6 TH/MM3 (1.0-4.8); MEAN CELL VOLUME 71.7 FL (80.0-100.0); MEAN CORPUSCULAR HEMOGLOBIN 23.9 PG (27.0-34.0); MEAN CORPUSCULAR HGB CONC 33.3 % (32.0-36.0); MONO % 7.4 % (0.0-8.0); NEUT % 64.6 % (16.0-70.0); PLATELET COUNT 349 TH/MM3 (150-450); RED BLOOD COUNT 5.05 MIL/MM3 (4.00-5.30); RED CELL DISTRIBUTION WIDTH 18.3 % (11.6-17.2); WHITE BLOOD COUNT 13.5 TH/MM3 (4.0-11.0)
[2017-12-03 14:27] LABS: ALBUMIN 3.5 GM/DL (3.4-5.0); AST (GOT) 11 U/L (15-37); BICARBONATE 25.6 MEQ/L (21.0-32.0); BLOOD UREA NITROGEN 5 MG/DL (7-18); CALCIUM 8.8 MG/DL (8.5-10.1); CHLORIDE 105 MEQ/L (98-107); CREATININE 0.71 MG/DL (0.50-1.00); GLOMERULAR FILTRATION RATE 122 ML/MIN (>89); GLUCOSE,RANDOM 112 MG/DL (74-106); SODIUM (NA) 140 MEQ/L (136-145)
[2017-12-03 14:31] LABS: ALKALINE PHOSPHATASE 80 U/L (45-117); ALT (GPT) 17 U/L (10-53); TOTAL BILIRUBIN ADULT 0.3 MG/DL (0.2-1.0); TROPONIN I LESS THAN 0.02 NG/ML (0.02-0.05)
[2017-12-03] MEDS ORDERED: SODIUM CHLOR 0.9% 1000 ML INJ 1,000 ML IV ONE ×2 (14:45)
[2017-12-03] MEDS ORDERED: ACETAMINOPHEN 325 MG TAB PO ONE (14:45)
[2017-12-03 15:02] VITALS: BP 131/76; PULSE 89; RESP 17; O2SAT 99
--- NOTE | 2017-12-03 15:06 | PD ---
HPI Chief Complaint: Chest Pain Time Seen by Provider: 14:26 Travel History International Travel<30 days: No Contact w/Intl Traveler<30days: No Traveled to known affect area: No History of Present Illness HPI Patient is a 22-year-old female who is 9 weeks , presents to the emergency room with complaints of chest pain. Patient reports that she woke up this morning with sharp and stabbing pain to her left chest, patient reports that pain is worse with taking a deep breath, nothing makes symptoms better. Reports that pain is nonradiating in nature, denies any diaphoresis with her symptoms. Patient denies history of ACS, coronary artery disease, PE or DVT. Patient denies any recent travels or trips, no family history of any early coronary artery disease. Patient is a non-smoker, denies any abdominal pain, denies any nausea vomiting, denies any vaginal discharge or bleeding PFSH Past Medical History Asthma: Yes (childhood) Developmental Delay: No Diminished Hearing: No Immunizations Current: Yes ?: LMP: 8 weeks : 4 Para: 3 Miscarriage: 0 : 0 Past Surgical History Surgical History: No Previous Surgery Social History Alcohol Use: Yes (OCCASSIONAL) Tobacco Use: No Substance Use: No Allergies-Medications (Allergen,Severity, Reaction): Coded Allergies: No Known Allergies (Verified Adverse Reaction, Unknown, 04/29/17) Reported Meds & Prescriptions Reported Meds & Active Scripts Active Zofran Odt (Ondansetron Odt) 4 Mg Tab 4 Mg SL Q6HR PRN Macrobid (Nitrofurantoin Monoh/Nitrofur Macro) 100 Mg Cap 100 Mg PO BID 7 Days Amoxicillin 500 Mg Tab 500 Mg PO TID Prednisone 20 Mg Tab 20 Mg PO BID Review of Systems General / Constitutional: No: Fever Eyes: No: Visual changes HENT: No: Headaches Cardiovascular: Positive: Chest Pain or Discomfort, Palpitations, Irregular Rhythm Respiratory: Positive: Shortness of Breath Gastrointestinal: No: Abdominal Pain Genitourinary: No: Dysuria, Discharge, Vaginal Bleeding Musculoskeletal: No: Pain Skin: No Rash Neurologic: No: Weakness Psychiatric: No: Depression Endocrine: No: Polydipsia Hematologic/Lymphatic: No: Easy Bruising Physical Exam Narrative GENERAL: Mild distress SKIN: Focused skin assessment warm/dry. HEAD: Atraumatic. Normocephalic. EYES: Pupils equal and round. No scleral icterus. No injection or drainage. ENT: No nasal bleeding or discharge. Mucous membranes pink and moist. NECK: Trachea midline. No JVD. CARDIOVASCULAR: Regular rate and rhythm. No murmur appreciated. RESPIRATORY: No accessory muscle use. Clear to auscultation. Breath sounds equal bilaterally. GASTROINTESTINAL: Abdomen soft, non-tender, nondistended. Hepatic and splenic margins not palpable. MUSCULOSKELETAL: No obvious deformities. No clubbing. No cyanosis. No edema. NEUROLOGICAL: Awake and alert. No obvious cranial nerve deficits. Motor grossly within normal limits. Normal speech. PSYCHIATRIC: Appropriate mood and affect; insight and judgment normal. Data Data Last Documented VS Vital Signs Date Time Temp Pulse Resp B/P (MAP) Pulse Ox O2 Delivery O2 Flow Rate FiO2 12/03/17 16:00 75 18 123/63 (83) 100 Room Air 12/03/17 13:44 97.5 Orders Orders Electrocardiogram (12/03/17 ) Complete Blood Count With Diff (12/03/17 13:47) Comprehensive Metabolic Panel (12/03/17 13:47) Troponin I (12/03/17 13:47) Electrocardiogram (12/03/17 ) D-Dimer (12/03/17 14:44) Chest, Single Ap (12/03/17 14:44) Ecg Monitoring (12/03/17 14:44) Iv Access Insert/Monitor (12/03/17 14:44) Oximetry (12/03/17 14:44) Sodium Chlor 0.9% 1000 Ml Inj (Ns 1000 M (12/03/17 14:45) Sodium Chlor 0.9% 1000 Ml Inj (Ns 1000 M (12/03/17 14:45) Acetaminophen (Tylenol) (12/03/17 14:45) Potassium Chloride (Kcl) (12/03/17 16:30) Ct Pulmonary Angiogram (12/03/17 16:37) Labs Laboratory Tests Test 12/03/17 13:50 12/03/17 15:00 White Blood Count 13.5 TH/MM3 Red Blood Count 5.05 MIL/MM3 Hemoglobin 12.0 GM/DL Hematocrit 36.2 % Mean Corpuscular Volume 71.7 FL Mean Corpuscular Hemoglobin 23.9 PG Mean Corpuscular Hemoglobin Concent 33.3 % Red Cell Distribution Width 18.3 % Platelet Count 349 TH/MM3 Mean Platelet Volume 8.0 FL Neutrophils (%) (Auto) 64.6 % Lymphocytes (%) (Auto) 26.7 % Monocytes (%) (Auto) 7.4 % Eosinophils (%) (Auto) 0.8 % Basophils (%) (Auto) 0.5 % Neutrophils # (Auto) 8.7 TH/MM3 Lymphocytes # (Auto) 3.6 TH/MM3 Monocytes # (Auto) 1.0 TH/MM3 Eosinophils # (Auto) 0.1 TH/MM3 Basophils # (Auto) 0.1 TH/MM3 CBC Comment DIFF FINAL Differential Comment Blood Urea Nitrogen 5 MG/DL Creatinine 0.71 MG/DL Random Glucose 112 MG/DL Total Protein 8.0 GM/DL Albumin 3.5 GM/DL Calcium Level 8.8 MG/DL Alkaline Phosphatase 80 U/L Aspartate Amino Transf (AST/SGOT) 11 U/L Alanine Aminotransferase (ALT/SGPT) 17 U/L Total Bilirubin 0.3 MG/DL Sodium Level 140 MEQ/L Potassium Level 3.3 MEQ/L Chloride Level 105 MEQ/L Carbon Dioxide Level 25.6 MEQ/L Anion Gap 9 MEQ/L Estimat Glomerular Filtration Rate 122 ML/MIN Troponin I LESS THAN 0.02 NG/ML D-Dimer Quantitative (PE/DVT) 0.57 MG/L FEU [facility] Medical Decision Making Medical Screen Exam Complete: Yes Emergency Medical Condition: Yes Medical Record Reviewed: Yes Interpretation(s) EKG at 1355: NSR at 81bpm, qt/qtc: 382/420, no acute st changes Vital Signs Date Time Temp Pulse Resp B/P (MAP) Pulse Ox O2 Delivery O2 Flow Rate FiO2 12/03/17 15:02 89 17 131/76 (94) 99 Room Air 12/03/17 13:44 97.5 84 16 139/62 (87) 100 Differential Diagnosis ACS, arrhythmia, PE, pneumothorax, electrolyte abnormality Narrative Course During the course of the patients emergency department visit, the patients history, examination, and differential diagnosis were reviewed with the patient. The patient was placed on a equipment monitor phototypesetting with oximetry and frequent blood pressure monitoring. The patient had an IV access obtained and blood work sent for analysis. The patient was initially provided IVF The patients laboratory studies were reviewed and remarkable for Laboratory Tests Test 12/03/17 13:50 12/03/17 15:00 White Blood Count 13.5 TH/MM3 (4.0-11.0) Red Blood Count 5.05 MIL/MM3 (4.00-5.30) Hemoglobin 12.0 GM/DL (11.6-15.3) Hematocrit 36.2 % (35.0-46.0) Mean Corpuscular Volume 71.7 FL (80.0-100.0) Mean Corpuscular Hemoglobin 23.9 PG (27.0-34.0) Mean Corpuscular Hemoglobin Concent 33.3 % (32.0-36.0) Red Cell Distribution Width 18.3 % (11.6-17.2) Platelet Count 349 TH/MM3 (150-450) Mean Platelet Volume 8.0 FL (7.0-11.0) Neutrophils (%) (Auto) 64.6 % (16.0-70.0) Lymphocytes (%) (Auto) 26.7 % (9.0-44.0) Monocytes (%) (Auto) 7.4 % (0.0-8.0) Eosinophils (%) (Auto) 0.8 % (0.0-4.0) Basophils (%) (Auto) 0.5 % (0.0-2.0) Neutrophils # (Auto) 8.7 TH/MM3 (1.8-7.7) Lymphocytes # (Auto) 3.6 TH/MM3 (1.0-4.8) Monocytes # (Auto) 1.0 TH/MM3 (0-0.9) Eosinophils # (Auto) 0.1 TH/MM3 (0-0.4) Basophils # (Auto) 0.1 TH/MM3 (0-0.2) CBC Comment DIFF FINAL Differential Comment Blood Urea Nitrogen 5 MG/DL (7-18) Creatinine 0.71 MG/DL (0.50-1.00) Random Glucose 112 MG/DL (74-106) Total Protein 8.0 GM/DL (6.4-8.2) Albumin 3.5 GM/DL (3.4-5.0) Calcium Level 8.8 MG/DL (8.5-10.1) Alkaline Phosphatase 80 U/L (45-117) Aspartate Amino Transf (AST/SGOT) 11 U/L (15-37) Alanine Aminotransferase (ALT/SGPT) 17 U/L (10-53) Total Bilirubin 0.3 MG/DL (0.2-1.0) Sodium Level 140 MEQ/L (136-145) Potassium Level 3.3 MEQ/L (3.5-5.1) Chloride Level 105 MEQ/L (98-107) Carbon Dioxide Level 25.6 MEQ/L (21.0-32.0) Anion Gap 9 MEQ/L (5-15) Estimat Glomerular Filtration Rate 122 ML/MIN (>89) Troponin I LESS THAN 0.02 NG/ML D-Dimer Quantitative (PE/DVT) 0.57 MG/L FEU (0.00-0.50) Radiology studies were reviewed and remarkable for Last Impressions Chest X-Ray 12/03/17 1444 Signed Impressions: CONCLUSION: Negative for acute process Patient reevaluated, patient with a positive d-dimer, discussed with patient need for CTA to rule out PE. She is 9 weeks , risks and benefits reviewed patient in detail, patient consents to obtaining this test as she is concerned about her pleuritic chest pain Patient refusing CT at this time, patient requesting leave AMA. AMA: The risks of leaving against medical advice without further evaluation treatment were discussed with the patient. These risks include cardiac dysfunction, cardiac dysrhythmia, possible heart attack, possible stroke or . The patient indicated understanding of these risks and appeared to have the capacity to make this decision. Patient will return to ER if she has return of symptoms Diagnosis Primary Impression: Left against medical advice Additional Impression: Chest pain Patient Instructions: General Instructions Additional Instructions: you may return to the emergency room at any time for reevaluation of your symptoms please follow up with your primary care doctor as soon as possible Disposition: 07 AGAINST MEDICAL ADVICE Condition: Serious Vicky Ahn DO Dec 03, 2017 15:06
--- NOTE | 2017-12-03 15:09 | RADRPT ---
EXAM DATE: 12/03/2017 3:06 PM EDT AGE/SEX: 22 years / Female INDICATIONS: Chest pain. CLINICAL DATA: This is the patient's initial encounter. Patient reports that signs and symptoms have been present for 1 day and indicates a pain score of 7/10. MEDICAL/SURGICAL HISTORY: . 8 1/2 weeks None. COMPARISON: No prior exams available for comparison. FINDINGS: A single AP view of the chest demonstrates the lungs to be symmetrically aerated without evidence of mass, infiltrate or effusion. The cardiomediastinal contours are unremarkable. Osseous structures a re intact. CONCLUSION: Negative for acute process Electronically signed by: Arthur Valadez MD 12/03/2017 3:08 PM EDT
[2017-12-03 16:00] VITALS: BP 123/63; PULSE 75; RESP 18; O2SAT 100
[2017-12-03] MEDS ORDERED: POTASSIUM CHLORIDE 10 MEQ CONTROLLED RELEASE TAB PO ONE (16:30)
--- NOTE | 2017-12-03 17:07 | PD ---
Data Data Last Documented VS Vital Signs Date Time Temp Pulse Resp B/P (MAP) Pulse Ox O2 Delivery O2 Flow Rate FiO2 12/03/17 16:00 75 18 123/63 (83) 100 Room Air 12/03/17 13:44 97.5 Orders Orders Electrocardiogram (12/03/17 ) Complete Blood Count With Diff (12/03/17 13:47) Comprehensive Metabolic Panel (12/03/17 13:47) Troponin I (12/03/17 13:47) Electrocardiogram (12/03/17 ) D-Dimer (12/03/17 14:44) Chest, Single Ap (12/03/17 14:44) Ecg Monitoring (12/03/17 14:44) Iv Access Insert/Monitor (12/03/17 14:44) Oximetry (12/03/17 14:44) Sodium Chlor 0.9% 1000 Ml Inj (Ns 1000 M (12/03/17 14:45) Sodium Chlor 0.9% 1000 Ml Inj (Ns 1000 M (12/03/17 14:45) Acetaminophen (Tylenol) (12/03/17 14:45) Potassium Chloride (Kcl) (12/03/17 16:30) Ct Pulmonary Angiogram (12/03/17 16:37) Labs Laboratory Tests Test 12/03/17 13:50 12/03/17 15:00 White Blood Count 13.5 TH/MM3 Red Blood Count 5.05 MIL/MM3 Hemoglobin 12.0 GM/DL Hematocrit 36.2 % Mean Corpuscular Volume 71.7 FL Mean Corpuscular Hemoglobin 23.9 PG Mean Corpuscular Hemoglobin Concent 33.3 % Red Cell Distribution Width 18.3 % Platelet Count 349 TH/MM3 Mean Platelet Volume 8.0 FL Neutrophils (%) (Auto) 64.6 % Lymphocytes (%) (Auto) 26.7 % Monocytes (%) (Auto) 7.4 % Eosinophils (%) (Auto) 0.8 % Basophils (%) (Auto) 0.5 % Neutrophils # (Auto) 8.7 TH/MM3 Lymphocytes # (Auto) 3.6 TH/MM3 Monocytes # (Auto) 1.0 TH/MM3 Eosinophils # (Auto) 0.1 TH/MM3 Basophils # (Auto) 0.1 TH/MM3 CBC Comment DIFF FINAL Differential Comment Blood Urea Nitrogen 5 MG/DL Creatinine 0.71 MG/DL Random Glucose 112 MG/DL Total Protein 8.0 GM/DL Albumin 3.5 GM/DL Calcium Level 8.8 MG/DL Alkaline Phosphatase 80 U/L Aspartate Amino Transf (AST/SGOT) 11 U/L Alanine Aminotransferase (ALT/SGPT) 17 U/L Total Bilirubin 0.3 MG/DL Sodium Level 140 MEQ/L Potassium Level 3.3 MEQ/L Chloride Level 105 MEQ/L Carbon Dioxide Level 25.6 MEQ/L Anion Gap 9 MEQ/L Estimat Glomerular Filtration Rate 122 ML/MIN Troponin I LESS THAN 0.02 NG/ML D-Dimer Quantitative (PE/DVT) 0.57 MG/L FEU MDM Supervised Visit with MECCA: Talya Desir DO Dec 03, 2017 17:07
[2017-12-03 17:35] VITALS: BP 134/73
--- NOTE | 2017-12-04 18:34 | EKG ---
Date Performed: 12/03/2017 Time Performed: 13:55:25 PTAGE: 22 years EKG: Sinus rhythm LEFT ATRIAL ENLARGEMENT POSSIBLE RIGHT VENTRICULAR CONDUCTION DELAY NONSPECIFIC T-WAVE ABNORMALITY A BNORMAL ECG Since the PREVIOUS TRACING , no significant change noted PREVIOUS TRACIN08/07/2015 08.45 DOCTOR: Mariel Talley Interpretating Date/Time 12/04/2017 18:32:09
== END 2017-12-03 17:43 | disposition left against medical advice (07) ==
LOC: NEPD 13:40
DX: O26.891 Other specified pregnancy related conditions, first trimester (principal); R07.9 Chest pain, unspecified; R94.31 Abnormal electrocardiogram [ECG] [EKG]; O99.511 Diseases of the respiratory system complicating pregnancy, first trimester; J45.909 Unspecified asthma, uncomplicated; Z3A.09 9 weeks gestation of pregnancy; Z53.20 Procedure and treatment not carried out because of patient's decision for unspecified reasons
CPT/HCPCS: 71045; 80053; 84484; 85025; 85379; 93005; 99285; J7030